=== PATIENT | male | born 1935 | race Caucasian/White ===

== ENCOUNTER → 2022-05-25 | Day surgery (SDC) | payer MEDICARE ==
[~2022-05-25] MED LIST: CEFAZOLIN 1 GM VIAL ONE; CEFAZOLIN 2 GM VIAL ONE; Fentanyl 100 MCG/2 ML VIAL ONE; Gentamicin 80 MG/2 ML VIAL ONE; Lidocaine 1% (PF) 30 ML VIAL ONE; Lidocaine 1% MPF 2 ML VIAL ONE; Midazolam HCl 2 mg/2 ml Vial ONE; Sodium Chloride 0.9% 100 ML ONE; hydrALAZINE 20 MG/ML VIAL ONE
[2022-05-25 16:49] LABS: #Eosinphils 0.3 thou/uL (0.0-0.7); #Lymphocytes 1.6 thou/uL (1.20-3.40); #Monocytes 0.8 thou/uL (0.11-0.59); #Neutrophils 4.8 thou/uL (1.40-6.50); %Basophils 0.6 % (0.0-1.0); %Eosinophils 4.4 % (0.0-10.0); %Lymphocytes 21.2 % (21.0-51.0); %Neutrophils 62.7 % (42.0-75.0); Hemoglobin 13.5 g/dL (14.0-18.0); Mean Corpuscular HGB CONC 32.7 g/dL (32.0-36.0); Mean Corpuscular Hemoglobin 33.4 pg (27.0-31.0); Mean Platelet Volume 7.9 fL (7.4-10.4); Platelet Count 246 thou/uL (130-400); RBC Distribution Width 11.8 % (11.5-14.5); Red Blood Cell (RBC) Count 4.04 mill/uL (4.70-6.10); White Blood Cell (WBC) Count 7.7 thou/uL (4.8-10.8)
[2022-05-25 17:10] LABS: Anion Gap 14 mmol/L (10-20); BUN (Urea Nitrogen) 25 mg/dL (8.4-25.7); Calc. Creatinine Clearance 0 mL/min (70-130); Calcium 9.5 mg/dL (7.8-10.44); Carbon Dioxide 22 mmol/L (23-31); Chloride 98 mmol/L (98-107); Estimated GFR 43; Glucose 74 mg/dL (83-110); Potassium 4.5 mmol/L (3.5-5.1); Sodium 129 mmol/L (136-145)
== END | disposition home or self-care (01) ==
LOC: SDC 15:23
PROVIDERS: ATTEND Internal Medicine Cardiovascular Disease
PROC: 0JPT0PZ Removal of Cardiac Rhythm Related Device from Trunk Subcutaneous Tissue and Fascia, Open Approach (ICD-10-PCS; principal; 2022-05-25)
PROC: 0JH606Z Insertion of Pacemaker, Dual Chamber into Chest Subcutaneous Tissue and Fascia, Open Approach (ICD-10-PCS; 2022-05-25)
DX: Z45.010 Encounter for checking and testing of cardiac pacemaker pulse generator [battery] (principal); I44.2 Atrioventricular block, complete; I49.5 Sick sinus syndrome; R00.1 Bradycardia, unspecified; I10 Essential (primary) hypertension
CPT/HCPCS: 33228; 80048; 85025; 93005; C1785; J0360; J0690; J1580; J2001; J2250; J3010; J3490

== ENCOUNTER 2024-08-20 20:24 | Inpatient (IN) | payer MEDICARE ==
[2024-08-20 21:00] VITALS: BMI 16.8
[2024-08-20] MEDS ORDERED: Acetaminophen 325 MG TAB PO PRN (21:45)
[2024-08-20] MEDS ORDERED: Ondansetron ODT 4 MG TAB PO PRN (21:45)
[2024-08-20] MEDS ORDERED: Ipratropium/Albuterol 3 ML NEB NEB PRN (22:27)
[2024-08-20] MEDS: Multivit, Therapeutic 1 TAB PO SCH (23:05)
[2024-08-20] MEDS: Oseltamivir 75 MG CAP PO SCH (23:05)
[2024-08-21] MEDS: Sodium Chloride 0.9% 500 ML IV SCH (02:50)
[2024-08-21 04:14] LABS: Lactic Acid 1.16 mmol/L (0.5-2.2)
[2024-08-21 04:16] LABS: Hemoglobin A1c 5.6 % (4.0-6.0)
[2024-08-21 04:23] LABS: ALT (SGPT) 23 U/L (8-55); AST (SGOT) 31 U/L (5-34); Albumin 2.9 g/dL (3.4-4.8); Alkaline Phosphatase 71 U/L (40-110); Anion Gap 11 mmol/L (10-20); BUN (Urea Nitrogen) 11 mg/dL (8.4-25.7); Bilirubin, Total 0.4 mg/dL (0.2-1.2); Calc. Creatinine Clearance 42 mL/min (70-130); Calcium 8.2 mg/dL (7.8-10.44); Carbon Dioxide 23 mmol/L (23-31); Chloride 102 mmol/L (98-107); Estimated GFR 83; Globulin 2.9 g/dL (2.4-3.5); Glucose 188 mg/dL (83-110); Magnesium 1.9 mg/dL (1.6-2.6); Potassium 3.5 mmol/L (3.5-5.1); Protein, Total 5.8 g/dL (5.8-8.1); Sodium 132 mmol/L (136-145)
[2024-08-21 04:41] LABS: Hematocrit 34.6 % (42.0-52.0); Hemoglobin 11.5 g/dL (14.0-18.0); Mean Corpuscular HGB CONC 33.2 g/dL (32.0-36.0); Mean Corpuscular Hemoglobin 30.8 pg (27.0-31.0); Mean Corpuscular Volume 92.8 fL (78.0-98.0); Mean Platelet Volume 9.8 fL (7.4-10.4); Platelet Count 128 10x3/uL (130-400); RBC Distribution Width 13.2 % (11.5-14.5); Red Blood Cell (RBC) Count 3.73 mill/uL (4.70-6.10)
[2024-08-21 05:30] LABS: Anisocytosis SLIGHT = 6-15 cells HPF (0-5); Band 3 % (5-11); Large Platelets 8.9 % (0-5); Lymphocytes 7 % (21-51); Macrocytosis SLIGHT = 6-15 cells HPF (0-5); Monocytes 3 % (0-10); Neutrophil 87 % (42-75); Platelet Adequacy Comment Platelets Decreased; Polychromasia SLIGHT = 2-3 cells HPF (0-2); Smudge Cells 7.9 %
[2024-08-21] MEDS: Oseltamivir 75 MG CAP PO SCH (08:24)
[2024-08-21 08:25] LABS: Hematocrit 35.4 % (42.0-52.0); Hemoglobin 11.8 g/dL (14.0-18.0); Mean Corpuscular HGB CONC 33.3 g/dL (32.0-36.0); Mean Corpuscular Hemoglobin 31.1 pg (27.0-31.0); Mean Corpuscular Volume 93.2 fL (78.0-98.0); Mean Platelet Volume 9.9 fL (7.4-10.4); Platelet Count 146 10x3/uL (130-400); RBC Distribution Width 13.3 % (11.5-14.5)
[2024-08-21] MEDS: Multivit, Therapeutic 1 TAB PO SCH (08:25)
[2024-08-21] MEDS: Enoxaparin 40 MG (0.4 mL) SYRINGE SC SCH (08:25)
[2024-08-21] MEDS: Lisinopril 20 MG TAB PO SCH (08:25)
[2024-08-21 08:26] LABS: #Basophils Less than 0.03 10x3/uL (0.0-0.2); #Eosinophils Less than 0.03 10x3/uL (0.0-0.7); %Lymphocytes 20.2 % (21.0-51.0); %Monocytes 11.3 % (0.0-10.0)
[2024-08-21] MEDS ORDERED: FLU (Fluad Triv) TS24-25 (65UP)/MF59C/PF 45 MCG/0.5 ML Syringe IM ONE (09:00)
[2024-08-21 09:36] LABS: Band 4 % (5-11); Burr Cells SLIGHT = 2-5 cells HPF (0-1); Lymphocytes 10 % (21-51); Monocytes 9 % (0-10); Neutrophil 73 % (42-75); Platelet Adequacy Comment Platelets Normal; Polychromasia SLIGHT = 2-3 cells HPF (0-2); Reactive Lymphocytes 2 % (0-10); Smudge Cells 13.9 %
[2024-08-21 11:34] VITALS: BMI 16.9
[2024-08-21] MEDS: Oseltamivir 6 MG/ML ORAL SUSP PO SCH (20:51)
[2024-08-22 04:35] LABS: Hematocrit 37.9 % (42.0-52.0); Hemoglobin 12.6 g/dL (14.0-18.0); Mean Corpuscular HGB CONC 33.2 g/dL (32.0-36.0); Mean Corpuscular Hemoglobin 31.2 pg (27.0-31.0); Mean Corpuscular Volume 93.8 fL (78.0-98.0); Mean Platelet Volume 9.6 fL (7.4-10.4); Platelet Count 172 10x3/uL (130-400); RBC Distribution Width 13.2 % (11.5-14.5); Red Blood Cell (RBC) Count 4.04 mill/uL (4.70-6.10)
[2024-08-22 05:49] LABS: Band 1 % (5-11); Lymphocytes 10 % (21-51); Monocytes 15 % (0-10); Neutrophil 74 % (42-75); Platelet Adequacy Comment Platelets Normal; RBC Morphology Within Normal Limits
[2024-08-22] MEDS: GUAIFENESIN SF SOLN 200 MG/10 ML UDCUP PO PRN (05:51)
[2024-08-22] MEDS: hydrALAZINE 20 MG/ML VIAL SLOW IVP PRN (05:52)
[2024-08-22 07:40] LABS: ALT (SGPT) 26 U/L (8-55); AST (SGOT) 34 U/L (5-34); Alkaline Phosphatase 73 U/L (40-110); Anion Gap 11 mmol/L (10-20); BUN (Urea Nitrogen) 14 mg/dL (8.4-25.7); Bilirubin, Total 0.4 mg/dL (0.2-1.2); Calc. Creatinine Clearance 48 mL/min (70-130); Calcium 8.5 mg/dL (7.8-10.44); Carbon Dioxide 26 mmol/L (23-31); Chloride 103 mmol/L (98-107); Estimated GFR 86; Globulin 2.9 g/dL (2.4-3.5); Glucose 88 mg/dL (83-110); Potassium 3.3 mmol/L (3.5-5.1); Protein, Total 5.9 g/dL (5.8-8.1); Sodium 137 mmol/L (136-145)
[2024-08-22] MEDS: Folic Acid 1 MG TAB PO SCH (07:57)
[2024-08-22] MEDS: Thiamine 100 MG TAB PO SCH (07:57)
[2024-08-22] MEDS: Enoxaparin 30 MG (0.3 mL) SYRINGE SC SCH (07:57)
[2024-08-22] MEDS: Amlodipine 5 MG TAB PO SCH (12:02)
[2024-08-22] MEDS: Potassium Chloride 20 MEQ TAB PO SCH (12:57)
[2024-08-23 05:02] LABS: Hematocrit 39.8 % (42.0-52.0); Hemoglobin 13.1 g/dL (14.0-18.0); Mean Corpuscular HGB CONC 32.9 g/dL (32.0-36.0); Mean Corpuscular Hemoglobin 30.9 pg (27.0-31.0); Mean Corpuscular Volume 93.9 fL (78.0-98.0); Mean Platelet Volume 9.7 fL (7.4-10.4); Platelet Count 217 10x3/uL (130-400); RBC Distribution Width 13.4 % (11.5-14.5); Red Blood Cell (RBC) Count 4.24 mill/uL (4.70-6.10)
[2024-08-23 05:03] LABS: ALT (SGPT) 25 U/L (8-55); AST (SGOT) 29 U/L (5-34); Alkaline Phosphatase 77 U/L (40-110); Anion Gap 12 mmol/L (10-20); BUN (Urea Nitrogen) 15 mg/dL (8.4-25.7); Bilirubin, Total 0.7 mg/dL (0.2-1.2); Calc. Creatinine Clearance 51 mL/min (70-130); Calcium 8.6 mg/dL (7.8-10.44); Carbon Dioxide 25 mmol/L (23-31); Chloride 103 mmol/L (98-107); Estimated GFR 88; Globulin 3.2 g/dL (2.4-3.5); Glucose 97 mg/dL (83-110); Potassium 3.6 mmol/L (3.5-5.1); Protein, Total 6.2 g/dL (5.8-8.1); Sodium 136 mmol/L (136-145)
[2024-08-23 06:27] LABS: Anisocytosis MODERATE=16-30 cells HPF (0-5); Band 1 % (5-11); Hypochromia SLIGHT = 6-15 cells HPF (0-5); Lymphocytes 18 % (21-51); Macrocytosis SLIGHT = 6-15 cells HPF (0-5); Microcytosis SLIGHT = 6-15 cells HPF (0-5); Monocytes 7 % (0-10); Neutrophil 69 % (42-75); Platelet Adequacy Comment Platelets Normal; Polychromasia MODERATE = 3-4 cells HPF (0-2); Reactive Lymphocytes 5 % (0-10)
[2024-08-23] MEDS: Amlodipine 5 MG TAB PO SCH (07:43)
[2024-08-23] MEDS ORDERED: FLU (Fluad Triv) TS24-25 (65UP)/MF59C/PF 45 MCG/0.5 ML Syringe IM ONE (09:00)
[2024-08-23 13:59] VITALS: BP 152/87; TEMP 97.9
== END 2024-08-23 14:15 | disposition home health service (06) | DRG 193 ==
LOC: INTOOBSV 20:24 → 2SE 20:24 → OBSVTOIN 08-21 13:12
PROVIDERS: ADMIT Emergency Medicine; ATTEND Emergency Medicine
DX: J10.1 Influenza due to other identified influenza virus with other respiratory manifestations (principal); J96.01 Acute respiratory failure with hypoxia; E87.1 Hypo-osmolality and hyponatremia; E87.20 Acidosis, unspecified; I10 Essential (primary) hypertension; E87.6 Hypokalemia; F10.90 Alcohol use, unspecified, uncomplicated; R73.9 Hyperglycemia, unspecified; Z87.891 Personal history of nicotine dependence; Z95.0 Presence of cardiac pacemaker; Z79.899 Other long term (current) drug therapy
CPT/HCPCS: 36415; 80053; 83036; 83605; 83735; 85025; 96372; G0378; J0360; J1650; J7030

== ENCOUNTER 2024-08-27 10:59 | Inpatient (IN) | payer MEDICARE ==
[2024-08-27 13:23] VITALS: BMI 15.6
[2024-08-27] MEDS ORDERED: Iopamidol-370 76% 500 ML MDV (1 ML CHARGE) ONE (13:47)
[2024-08-27] MEDS ORDERED: Acetaminophen 325 MG TAB PO PRN ×2 (14:47→16:47)
[2024-08-27] MEDS: Lidocaine 1%/Epinephrine 1:100K 10 ML VIAL IJ SCH (16:00)
[2024-08-27] MEDS: Lidocaine 1% w/Epinephrine 1:100K 20 ML VIAL ONE (16:00)
[2024-08-27] MEDS ORDERED: Electrolyte Replacement Protocol 1 EACH FS SCH (16:45)
[2024-08-27] MEDS ORDERED: Vancomycin Dose by Levels Sliding Scale (Wt <71) FS SCH (17:15)
[2024-08-27] MEDS: Lactated Ringer's 1,000 ML IV SCH (17:17)
[2024-08-27] MEDS: Piperacillin/Tazobactam 3.375 GM in Sodium Chloride 0.9% 100 ML IVPB SCH (17:19)
[2024-08-27] MEDS: Lorazepam 1 MG TAB PO SCH (17:19)
[2024-08-27 17:31] LABS: Synovial Fluid, Glucose Less than 7 mg/dL (Not Available); Synovial Fluid, Protein 3.6 g/dL (Not Available); Synovial Fluid, Uric Acid 4.4 mg/dL (Not Available)
[2024-08-27 17:37] LABS: Troponin I 0.053 ng/mL (< 0.028)
[2024-08-27] MEDS ORDERED: SODIUM CHLORIDE 0.9% IVPB SCH (21:00)
[2024-08-27] MEDS ORDERED: VANCOMYCIN IVPB SCH (21:00)
[2024-08-27] MEDS: GUAIFENESIN SF SOLN 200 MG/10 ML UDCUP PO PRN (22:55)
[2024-08-28] MEDS: Piperacillin/Tazobactam 3.375 GM in Sodium Chloride 0.9% 100 ML IVPB SCH (02:40)
[2024-08-28 04:54] LABS: #Basophils 0.05 10x3/uL (0.0-0.2); #Eosinophils Less than 0.03 10x3/uL (0.0-0.7); %Basophils 0.4 % (0.0-1.0); %Eosinophils 0.2 % (0.0-10.0); %Monocytes 10.7 % (0.0-10.0); Hematocrit 39.5 % (42.0-52.0); Hemoglobin 12.2 g/dL (14.0-18.0); Mean Corpuscular HGB CONC 30.9 g/dL (32.0-36.0); Mean Corpuscular Volume 100.5 fL (78.0-98.0); Mean Platelet Volume 10.1 fL (7.4-10.4); Platelet Count 200 10x3/uL (130-400); RBC Distribution Width 14.1 % (11.5-14.5); Red Blood Cell (RBC) Count 3.93 mill/uL (4.70-6.10)
[2024-08-28 05:22] LABS: Anion Gap 15 mmol/L (10-20); BUN (Urea Nitrogen) 18 mg/dL (8.4-25.7); Calc. Creatinine Clearance 48 mL/min (70-130); Calcium 8.6 mg/dL (7.8-10.44); Carbon Dioxide 18 mmol/L (23-31); Chloride 104 mmol/L (98-107); Estimated GFR 89; Glucose 64 mg/dL (83-110); Sodium 133 mmol/L (136-145)
[2024-08-28 05:28] LABS: Magnesium 1.9 mg/dL (1.6-2.6)
[2024-08-28 05:32] LABS: Bacteria/HPF None Seen HPF (None Seen); Bilirubin Negative (Negative); Blood, Urine 1+ (Negative); Clarity Clear (Clear); Glucose, Urine (Dipstick) Normal (Negative); Ketone, Urine 20 mg/dL (Negative); Leukocyte Negative Leu/uL (Negative); Nitrite Negative (Negative); Protein, Urine (Dipstick) 30 mg/dL (Neg-Trace); RBC/HPF 0-3 HPF (0-3); Specific Gravity, Urine 1.045 (1.002-1.036); Squamous Epithelial None Seen HPF (0-3); Urobilinogen Normal mg/dL (Less than 2); WBC/HPF 0-3 HPF (0-3); pH, Urine 5.5 (5.0-9.0)
[2024-08-28 05:36] LABS: CRP,High Sensitivity (Inhouse) Greater than 16.00 mg/dL (< or = 0.5)
[2024-08-28 06:54] LABS: Phosphorus 3.2 mg/dL (2.3-4.7)
[2024-08-28] MEDS ORDERED: Amlodipine 10 MG TAB PO SCH (09:00)
[2024-08-28] MEDS: Folic Acid 1 MG TAB PO SCH (09:13)
[2024-08-28] MEDS: Multivit, Therapeutic 1 TAB PO SCH (09:13)
[2024-08-28] MEDS: Thiamine 100 MG TAB PO SCH (09:13)
[2024-08-28] MEDS: Amlodipine 10 MG TAB PO SCH (09:13)
[2024-08-28] MEDS: Magnesium 2 GM/50 ML(in water) 2 GM in Premix 1 BAG IVPB SCH (09:13)
[2024-08-28] MEDS: Lisinopril 20 MG TAB PO SCH (09:14)
[2024-08-28] MEDS: Enoxaparin 40 MG (0.4 mL) SYRINGE SC SCH (09:14)
[2024-08-28 13:24] VITALS: BMI 15.6
[2024-08-28 18:47] LABS: Vancomycin, Trough 10.6 ug/mL
[2024-08-28] MEDS: Ipratropium/Albuterol 3 ML NEB NEB SCH (22:23)
[2024-08-29] MEDS: Vancomycin 1 GM in Premix 1 BAG IVPB SCH ×3 (00:51→22:34)
[2024-08-29 04:19] LABS: #Basophils 0.03 10x3/uL (0.0-0.2); %Basophils 0.3 % (0.0-1.0); %Eosinophils 0.6 % (0.0-10.0); %Lymphocytes 5.4 % (21.0-51.0); %Monocytes 11.4 % (0.0-10.0); %Neutrophils 81.7 % (42.0-75.0); Hematocrit 35.5 % (42.0-52.0); Hemoglobin 11.5 g/dL (14.0-18.0); Mean Corpuscular HGB CONC 32.4 g/dL (32.0-36.0); Mean Corpuscular Hemoglobin 30.8 pg (27.0-31.0); Mean Corpuscular Volume 95.2 fL (78.0-98.0); Mean Platelet Volume 9.1 fL (7.4-10.4); Platelet Count 305 10x3/uL (130-400); RBC Distribution Width 13.8 % (11.5-14.5); Red Blood Cell (RBC) Count 3.73 mill/uL (4.70-6.10)
[2024-08-29 04:32] LABS: Anion Gap 12 mmol/L (10-20); BUN (Urea Nitrogen) 13 mg/dL (8.4-25.7); Calc. Creatinine Clearance 49 mL/min (70-130); Calcium 8.5 mg/dL (7.8-10.44); Carbon Dioxide 23 mmol/L (23-31); Chloride 101 mmol/L (98-107); Estimated GFR 89; Glucose 97 mg/dL (83-110); Potassium 3.4 mmol/L (3.5-5.1); Sodium 133 mmol/L (136-145)
[2024-08-29] MEDS: Enoxaparin 30 MG (0.3 mL) SYRINGE SC SCH (09:06)
[2024-08-29] MEDS: Potassium Chloride 20 MEQ TAB PO SCH (09:07)
[2024-08-29] MEDS ORDERED: Iopamidol-370 76% 500 ML MDV (1 ML CHARGE) ONE (14:34)
[2024-08-29] MEDS: predniSONE 20 MG TAB PO SCH (15:23)
[2024-08-29] MEDS: Pantoprazole DR 40 MG TAB PO SCH (15:23)
[2024-08-29] MEDS: Ipratropium/Albuterol 3 ML NEB NEB PRN (20:18)
[2024-08-29] MEDS: Ketorolac Tromethamine 30 MG (1 mL) VIAL IVP SCH (20:47)
[2024-08-29] MEDS: Albuterol 2.5 MG (3 mL) NEB NEB SCH (20:56)
[2024-08-29] MEDS ORDERED: Amoxicillin/Potassium Clav 875 MG TAB PO SCH (21:00)
[2024-08-29 21:23] LABS: Base Excess (BEa) 2.1 mEq/L (-2.0 to +3.0); CO2 Tension 43.1 mmHg (35.0-45.0); Calcium, Ionized (arterial) 1.15 mmol/L (1.12-1.30); Carboxyhemoglobin (COHb) 1.3 gm% (0.0-3.0); Hematocrit-ABG 36 % (42.0-52.0); Hemoglobin (Hb) 12.4 g/dL (14.0-18.0); O2 Tension (PaO2), arterial 111.4 mmHg (> 60.0); Potassium - ABG Lab 3.69 mmol/L (3.70-5.30); pH, Arterial 7.415 (7.35-7.45)
[2024-08-29 21:24] LABS: ALV-art Gradient 119.925 mmHg (0-20)
[2024-08-29 23:03] LABS: #Basophils Less than 0.03 10x3/uL (0.0-0.2); #Eosinophils Less than 0.03 10x3/uL (0.0-0.7); %Basophils 0.1 % (0.0-1.0); %Lymphocytes 1.3 % (21.0-51.0); %Monocytes 6.3 % (0.0-10.0); %Neutrophils 91.6 % (42.0-75.0); Hematocrit 35.4 % (42.0-52.0); Hemoglobin 11.4 g/dL (14.0-18.0); Mean Corpuscular HGB CONC 32.2 g/dL (32.0-36.0); Mean Corpuscular Hemoglobin 30.8 pg (27.0-31.0); Mean Corpuscular Volume 95.7 fL (78.0-98.0); Mean Platelet Volume 8.8 fL (7.4-10.4); Platelet Count 281 10x3/uL (130-400); RBC Distribution Width 13.7 % (11.5-14.5)
[2024-08-29 23:15] LABS: Lactic Acid 0.87 mmol/L (0.5-2.2)
[2024-08-29] MEDS: Lactated Ringer's 1,000 ML IV SCH (23:26)
[2024-08-29 23:27] LABS: ALT (SGPT) 13 U/L (8-55); AST (SGOT) 16 U/L (5-34); Albumin 2.1 g/dL (3.4-4.8); Alkaline Phosphatase 69 U/L (40-110); Anion Gap 16 mmol/L (10-20); BUN (Urea Nitrogen) 13 mg/dL (8.4-25.7); Bilirubin, Total 0.6 mg/dL (0.2-1.2); Calc. Creatinine Clearance 41 mL/min (70-130); Calcium 8.5 mg/dL (7.8-10.44); Carbon Dioxide 22 mmol/L (23-31); Chloride 99 mmol/L (98-107); Estimated GFR 85; Globulin 3.8 g/dL (2.4-3.5); Glucose 209 mg/dL (83-110); Potassium 3.6 mmol/L (3.5-5.1); Protein, Total 5.9 g/dL (5.8-8.1); Sodium 133 mmol/L (136-145)
[2024-08-29] MEDS: Magnesium 2 GM/50 ML(in water) 2 GM in Premix 1 BAG IVPB SCH (23:51)
[2024-08-30] MEDS: Piperacillin/Tazobactam 3.375 GM in Sodium Chloride 0.9% 100 ML IVPB SCH (01:41)
[2024-08-30] MEDS: Lactated Ringer's 1,000 ML IV SCH (01:41)
[2024-08-30 03:12] LABS: #Basophils Less than 0.03 10x3/uL (0.0-0.2); #Eosinophils Less than 0.03 10x3/uL (0.0-0.7); %Basophils 0.2 % (0.0-1.0); %Monocytes 6.8 % (0.0-10.0); %Neutrophils 90.2 % (42.0-75.0); Hematocrit 36.4 % (42.0-52.0); Mean Corpuscular Hemoglobin 30.8 pg (27.0-31.0); Mean Corpuscular Volume 93.6 fL (78.0-98.0); Mean Platelet Volume 8.8 fL (7.4-10.4); Platelet Count 280 10x3/uL (130-400); RBC Distribution Width 13.7 % (11.5-14.5); Red Blood Cell (RBC) Count 3.89 mill/uL (4.70-6.10)
[2024-08-30 03:41] LABS: Troponin I 0.044 ng/mL (< 0.028)
[2024-08-30 04:01] LABS: Anion Gap 15 mmol/L (10-20); BUN (Urea Nitrogen) 11 mg/dL (8.4-25.7); Calc. Creatinine Clearance 44 mL/min (70-130); Calcium 8.4 mg/dL (7.8-10.44); Carbon Dioxide 22 mmol/L (23-31); Chloride 99 mmol/L (98-107); Estimated GFR 86; Glucose 228 mg/dL (83-110); Potassium 3.6 mmol/L (3.5-5.1); Sodium 132 mmol/L (136-145); Vancomycin, Random 25.4 ug/mL (See Comment)
[2024-08-30] MEDS: predniSONE 20 MG TAB PO SCH (10:04)
[2024-08-30] MEDS: Pantoprazole DR 40 MG TAB PO SCH (10:06)
[2024-08-31 04:32] LABS: #Basophils Less than 0.03 10x3/uL (0.0-0.2); #Eosinophils Less than 0.03 10x3/uL (0.0-0.7); %Basophils 0.2 % (0.0-1.0); %Eosinophils 0.1 % (0.0-10.0); %Lymphocytes 4.5 % (21.0-51.0); %Monocytes 8.1 % (0.0-10.0); %Neutrophils 86.4 % (42.0-75.0); Hematocrit 35.3 % (42.0-52.0); Hemoglobin 11.6 g/dL (14.0-18.0); Mean Corpuscular HGB CONC 32.9 g/dL (32.0-36.0); Mean Corpuscular Hemoglobin 30.9 pg (27.0-31.0); Mean Corpuscular Volume 93.9 fL (78.0-98.0); Mean Platelet Volume 8.9 fL (7.4-10.4); Platelet Count 308 10x3/uL (130-400); RBC Distribution Width 13.7 % (11.5-14.5); Red Blood Cell (RBC) Count 3.76 mill/uL (4.70-6.10)
[2024-08-31 05:25] LABS: Anion Gap 11 mmol/L (10-20); BUN (Urea Nitrogen) 11 mg/dL (8.4-25.7); Calc. Creatinine Clearance 53 mL/min (70-130); Calcium 8.5 mg/dL (7.8-10.44); Carbon Dioxide 27 mmol/L (23-31); Chloride 98 mmol/L (98-107); Estimated GFR 91; Glucose 128 mg/dL (83-110); Potassium 3.7 mmol/L (3.5-5.1); Sodium 132 mmol/L (136-145)
[2024-08-31] MEDS: Amoxicillin/Potassium Clav 500 MG TAB PO SCH (15:31)
[2024-09-01 06:07] LABS: Anion Gap 11 mmol/L (10-20); BUN (Urea Nitrogen) 16 mg/dL (8.4-25.7); Calc. Creatinine Clearance 48 mL/min (70-130); Calcium 8.4 mg/dL (7.8-10.44); Carbon Dioxide 29 mmol/L (23-31); Chloride 99 mmol/L (98-107); Estimated GFR 89; Glucose 90 mg/dL (83-110); Potassium 3.5 mmol/L (3.5-5.1); Sodium 135 mmol/L (136-145)
[2024-09-01 06:10] LABS: #Basophils 0.03 10x3/uL (0.0-0.2); %Basophils 0.3 % (0.0-1.0); %Eosinophils 0.8 % (0.0-10.0); %Lymphocytes 10.1 % (21.0-51.0); %Monocytes 11.1 % (0.0-10.0); Hematocrit 33.3 % (42.0-52.0); Hemoglobin 10.7 g/dL (14.0-18.0); Mean Corpuscular HGB CONC 32.1 g/dL (32.0-36.0); Mean Corpuscular Hemoglobin 30.7 pg (27.0-31.0); Mean Corpuscular Volume 95.7 fL (78.0-98.0); Mean Platelet Volume 8.7 fL (7.4-10.4); Platelet Count 364 10x3/uL (130-400); RBC Distribution Width 13.7 % (11.5-14.5); Red Blood Cell (RBC) Count 3.48 mill/uL (4.70-6.10)
[2024-09-01] MEDS: Potassium Chloride 20 MEQ TAB PO SCH (10:28)
[2024-09-01 15:52] VITALS: BP 130/75; TEMP 97.7
== END 2024-09-01 18:23 | disposition home or self-care (01) | DRG 193 ==
LOC: 2NO 12:17 → INTOOBSV 12:17 → OBSVTOIN 08-28 15:55 → IMCU/EMU 08-30 00:41 → 2NO 08-30 14:31
PROVIDERS: ADMIT Family Medicine; ATTEND Family Medicine
PROC: 0S9D3ZZ Drainage of Left Knee Joint, Percutaneous Approach (ICD-10-PCS; principal; 2024-08-27)
DX: J18.9 Pneumonia, unspecified organism (principal); J96.01 Acute respiratory failure with hypoxia; N18.6 End stage renal disease; E87.1 Hypo-osmolality and hyponatremia; N17.9 Acute kidney failure, unspecified; I12.0 Hypertensive chronic kidney disease with stage 5 chronic kidney disease or end stage renal disease; I42.9 Cardiomyopathy, unspecified; M25.462 Effusion, left knee; F10.90 Alcohol use, unspecified, uncomplicated; Y95 Nosocomial condition; Z79.899 Other long term (current) drug therapy; Z95.0 Presence of cardiac pacemaker; Z98.890 Other specified postprocedural states; R91.1 Solitary pulmonary nodule; E11.22 Type 2 diabetes mellitus with diabetic chronic kidney disease; D63.1 Anemia in chronic kidney disease; Z87.891 Personal history of nicotine dependence; Z99.2 Dependence on renal dialysis
CPT/HCPCS: 36415; 36416; 71045; 71275; 74230; 80048; 80202; 81001; 82805; 82945; 83605; 83735; 83880; 84100; 84145; 84157; 84484; 84560; 85025; 86141; 87040; 87070; 87081; 87086; 87205; 89060; 93306; 94640; 96372; 96374; 96375; 96376; G0378; J1650; J1885; J2543; J3370; J3475; J7120; J7512; J7611; J7620; Q9967

== ENCOUNTER 2025-06-10 11:34 | Emergency (ER) | payer MEDICARE ==
[2025-06-10] MEDS ORDERED: Dexamethasone 10 MG/ML VIAL ONE (14:24)
[2025-06-10] MEDS ORDERED: Acetaminophen 500 MG TAB ONE (14:24)
== END 2025-06-10 14:36 | disposition home or self-care (01) ==
LOC: ERS 11:34
DX: M17.12 Unilateral primary osteoarthritis, left knee (principal); M19.011 Primary osteoarthritis, right shoulder; I10 Essential (primary) hypertension; Z95.0 Presence of cardiac pacemaker; Z87.891 Personal history of nicotine dependence
CPT/HCPCS: 96372; 99282; J1100